=== PATIENT | male | born 1960 | race Caucasian/White ===

== ENCOUNTER 2022-04-02 12:36 | Outpatient (RCR) | payer OTHER, SELFPAY ==
[2022-04-02 13:16] VITALS: BMI 32.5
== END 2022-06-07 13:29 | disposition home or self-care (01) ==
LOC: ANHWOC 12:36
PROVIDERS: PCP Physician Assistant; Visit Provider Physician Assistant
DX: Z93.6 Other artificial openings of urinary tract status (principal)
CPT/HCPCS: 99212; G0463

== ENCOUNTER 2023-02-18 12:03 | Outpatient (RCR) | payer OTHER, SELFPAY ==
[2023-02-18 12:00] VITALS: BMI 25.6
--- NOTE | 2023-02-22 14:01 | PCWOUND ---
WOCN NOTE placed call to [facility] to order samples. patient would like to try two piece convex with clear bag. wafer [id number], bag [id number]
--- NOTE | 2023-03-04 09:35 | PCWOUND ---
WOCN NOTE patient called and wants to try next size smaller of the ostomy appliance. placed call to [facility] and they are sending out pouch [id number] and wafer [id number].
== END 2023-05-09 08:26 | disposition home or self-care (01) ==
LOC: ANHWOC 12:03
PROVIDERS: PCP Physician Assistant; Visit Provider Physician Assistant
DX: Z43.6 Encounter for attention to other artificial openings of urinary tract (principal)
CPT/HCPCS: 99214; G0463